=== PATIENT | male | born 1990 | race Asian ===

== ENCOUNTER 2016-09-17 15:38 | Emergency (ER) | payer OTHER ==
[~2016-09-17] VITALS: Ht 182.9 cm; Wt 61.2 kg
[2016-09-17] MEDS ORDERED: NKM (15:57)
[2016-09-17] MEDS ORDERED: IBUPROFEN600 MG ORAL (16:36)
[2016-09-17] MEDS ORDERED: AUGMENTIN 500-1 EACH ORAL (16:36)
[2016-09-17] MEDS ORDERED: TdaP Vaccine 0.5ml Syr IM ONE (16:45)
[2016-09-17 17:10] VITALS: BP 103/62
--- NOTE | 2016-09-17 20:35 | Emergency Room Report ---
History of Present Illness General Chief Complaint: Animal Bite Source: Patient Present Illness HPI The patient is a 25 from a presenting with a cat bite to the left thumb which occurred at work today. The patient states pain is a 5/10 dull ache it is worse with touch. Patient denies numbness or tingling to this area. The patient did notice bleeding when it occurred. The patient is unsure of last tetanus shot. Patient denies any other symptoms including N, V, F, chills Allergies: Coded Allergies: No Known Allergies (Unverified , 09/17/16) Patient History Past Medical History: see triage record Pertinent Family History: none Reviewed Nursing Documentation: PMH: Agreed, PSxH: Agreed Nursing Documentation-PMH Past Medical History: No Stated History Review of Systems All Other Systems: negative except mentioned in HPI Physical Exam Vital Signs Date Time Temp Pulse Resp B/P Pulse Ox O2 Delivery O2 Flow Rate FiO2 09/17/16 15:52 98.1 62 16 117/68 100 Room Air Sp02 EP Interpretation: reviewed, normal General Appearance: no apparent distress, alert, GCS 15, non-toxic Head: normocephalic, atraumatic Eyes: bilateral eye PERRL, bilateral eye normal inspection ENT: hearing grossly normal, no angioedema, normal voice Neck: full range of motion, supple/symm/no masses Musculoskeletal: tender - TTP over the L thumb Neurologic: alert, oriented x3, responsive, motor strength/tone normal, sensory intact, speech normal Psychiatric: judgement/insight normal, memory normal, mood/affect normal, no suicidal/homicidal ideation Skin: normal turgor, laceration - there are 3 puncture wounds of the L distal thumb Lymphatic: no adenopathy Medical Decision Making PA Attestation Dr. Ferrara is my supervising physician. Patient management was discussed with my supervising physician Diagnostic Impression: Primary Impression: Bite by animal ER Course The patient is a 25 from a presenting with a cat bite to the left thumb which occurred at work today. Ddx considered include but not limited to animal bite, laceration, wound infection, tendon injury PE: vitals WNL. NAD Left thumb: Distally there are 3 puncture wounds which extend through the dermis. SILT. Full AROM. tetanus vaccination given. The wounds were copiously irrigated with normal saline and Betadine. The patient is given a prescription for Augmentin and Motrin. ER precautions are given Last Vital Signs Date Time Temp Pulse Resp B/P Pulse Ox O2 Delivery O2 Flow Rate FiO2 09/17/16 17:10 98.1 50 17 103/62 100 Room Air Status: improved Disposition: HOME, SELF-CARE Condition: Improved Scripts Amoxicillin/Potassium Clav 500-125 Tablet* (AUGMENTIN 500-125 TABLET*) 1 Each Tablet 1 TAB ORAL THREE TIMES A DAY, #15 TAB Prov: CHARAN CHAN 09/17/16 Ibuprofen* (MOTRIN*) 600 Mg Tablet 600 MG ORAL Q8H Y for For Pain, #30 TAB 0 Refills Prov: CHARAN CHAN.A. 09/17/16 Referrals: NOT CHOSEN [facility]/MD,REFERRING (PCP) Patient Instructions: Animal Bite Additional Instructions: I discussed my findings with the patient. All questions and concerns have been answered. Treatment and medication compliance have been addressed. I advised the patient that they need to follow up with PMD in 3-5 days. Return to ED if pain remains or worsens, numbness or tingling occurs, new rash is noticed, fever is noticed, or if needed for any reason. Patient verbalized understanding of discharge instructions. CHARAN CHAN Sep 17, 2016 20:35
== END 2016-09-17 17:10 | disposition home or self-care (01) ==
LOC: EMR 16:55
DX: S61.052A Open bite of left thumb without damage to nail, initial encounter (principal); W55.01XA Bitten by cat, initial encounter; Y92.9 Unspecified place or not applicable; Y99.0 Civilian activity done for income or pay; Z23 Encounter for immunization
CPT/HCPCS: 90471; 90715; 99284